=== PATIENT | female | born 1995 | race Native Hawaiian/Other Pacific Islander ===

== ENCOUNTER 2017-01-31 22:56 | Emergency (ER) | payer OTHER ==
[~2017-01-31] VITALS: Ht 177.8 cm; Wt 90.7 kg
== END 2017-01-31 23:59 | disposition home or self-care (01) ==
LOC: ED 22:56
DX: N93.8 Other specified abnormal uterine and vaginal bleeding (principal)
CPT/HCPCS: 81025; 99285

== ENCOUNTER 2018-01-15 20:02 | Emergency (ER) | payer OTHER ==
[~2018-01-15] VITALS: Ht 175.3 cm; Wt 90.7 kg
== END 2018-01-15 20:27 | disposition home or self-care (01) ==
LOC: ED 20:02
DX: K08.89 Other specified disorders of teeth and supporting structures (principal)
CPT/HCPCS: 99281

== ENCOUNTER 2019-10-08 16:57 | Emergency (ER) | payer OTHER ==
[~2019-10-08] VITALS: Ht 175.3 cm; Wt 90.7 kg
[2019-10-08 17:38] LABS: PLATELET COUNT 228 K/uL (152-353)
[2019-10-08 17:47] LABS: POTASSIUM 3.7 mmol/L (3.6-5.2); SODIUM 141 mmol/L (136-145)
[2019-10-08 17:59] LABS: PARTIAL THROMBOPLASTIN TIME 23.9 SECONDS (24.5-33.6)
[2019-10-08 20:15] VITALS: BP 133/81; TEMP 98.6
== END 2019-10-08 20:15 | disposition home or self-care (01) ==
LOC: ED 16:57
PROVIDERS: Hospitalist
DX: R07.89 Other chest pain (principal); K21.9 Gastro-esophageal reflux disease without esophagitis; Z3A.10 10 weeks gestation of pregnancy
CPT/HCPCS: 80053; 83880; 84484; 84702; 85027; 85379; 85610; 85730; 87502; 87651; 93005; 99283

== ENCOUNTER 2022-12-20 18:49 | Emergency (ER) | payer OTHER ==
[~2022-12-20] VITALS: Ht 175.3 cm; Wt 99.8 kg
[2022-12-20 18:49] VITALS: BP 159/84; TEMP 97.9
== END 2022-12-20 21:44 | disposition home or self-care (01) ==
LOC: ED 18:49
DX: O20.9 Hemorrhage in early pregnancy, unspecified (principal)
CPT/HCPCS: 81000; 81025; 99283

== ENCOUNTER 2023-03-02 20:31 | Emergency (ER) | payer OTHER ==
[~2023-03-02] VITALS: Ht 175.3 cm; Wt 106.6 kg
[2023-03-02 20:36] VITALS: TEMP 98.3
[2023-03-02 23:45] VITALS: BP 137/76
== END 2023-03-02 23:45 | disposition home or self-care (01) ==
LOC: ED 20:31
DX: R07.89 Other chest pain (principal); Z3A.14 14 weeks gestation of pregnancy
CPT/HCPCS: 93005; 99282

== ENCOUNTER 2023-04-22 15:53 | Emergency (ER) | payer OTHER ==
[~2023-04-22] VITALS: Ht 177.8 cm; Wt 113.4 kg
[2023-04-22 15:53] VITALS: TEMP 99.7
[2023-04-22 16:10] LABS: PLATELET COUNT 279 K/uL (152-353)
[2023-04-22 16:18] LABS: POTASSIUM 3.5 mmol/L (3.6-5.2)
[2023-04-22 17:45] VITALS: BP 122/77
== END 2023-04-22 17:45 ==
LOC: ED 15:53
PROVIDERS: Family Medicine
DX: S06.0X0A Concussion without loss of consciousness, initial encounter (principal); R63.0 Anorexia; S00.93XA Contusion of unspecified part of head, initial encounter; E66.9 Obesity, unspecified
CPT/HCPCS: 80053; 81002; 81025; 85027; 93005; 99284